=== PATIENT | male | born 1995 | race Caucasian/White ===

== ENCOUNTER 2016-10-27 08:02 | Emergency (ER) | payer OTHER ==
[2016-10-27 08:12] VITALS: BP 148/79
[2016-10-27] MEDS ORDERED: IBUPROFEN 400 MG TABLET PO STA (08:19)
--- NOTE | 2016-10-27 08:22 | ED Physician Documentation ---
History of Present Illness - Stated complaint Stated Complaint: R ANKLE INJ - Chief complaint Chief Complaint: Trauma Ext - Additonal information Additional information: hx from pt 20 AD male inverted R ankle playing football alteral ankle and prox foot pain could bear wt last night but not today no other concerns Review of Systems Musculoskeletal: reports: Pain with weight bearing PD PAST MEDICAL HISTORY - Past Medical History Past Medical History: No Cardiovascular: None Respiratory: None Endocrine/Autoimmune: None GI: None : None HEENT: None Psych: None Musculoskeletal: None Derm: Other - Past Surgical History Past Surgical History: No - Present Medications Home Medications: Ambulatory Orders Medication Instructions Recorded Confirmed No Known Home Medications [No 10/27/16 10/27/16 Known Home Medications] - Allergies Allergies/Adverse Reactions: Allergies Allergy/AdvReac Type Severity Reaction Status Date / Time No Known Drug Allergies Allergy Verified 10/27/16 08:12 - Social History Does the pt smoke?: No Smoking Status: Never smoker Does the pt drink ETOH?: No Does the pt have substance abuse?: No PD ED PE NORMAL - Vitals Vital signs reviewed: Yes - Neuro Neuro: No motor deficit, No sensory deficit, Other (swelling to ankle below lat mall and to lateral proximal foot, mild TTP lat mall and ST inferior and TTP base of 5th, + pedal pulse and cap refill, MS intact, no laxity) Results - Vitals Vitals: Vital Signs - 24 hr 10/27/16 08:09 Temperature 36.3 C L Heart Rate 62 Respiratory 12 Rate Blood Pressure 148/79 H O2 Saturation 99 Oxygen O2 Source Room air - Rads (name of study) foot and ankle Radiology: See rad report (neg) Departure - Departure Disposition: 01 Home, Self Care Clinical Impression: Ankle sprain Qualifiers: Encounter type: initial encounter Involved ligament of ankle: unspecified ligament Laterality: right Qualified Code(s): S93.401A - Sprain of unspecified ligament of right ankle, initial encounter Foot sprain Qualifiers: Encounter type: initial encounter Laterality: right Qualified Code(s): S93.601A - Unspecified sprain of right foot, initial encounter Condition: Good Instructions: ED Sprain Ankle W X Ray, ED Sprain Foot Comments: The xrays do not show any fracture It is possible for a hairline fracture to not be visible on initial xrays so if you still have pain in 2 weeks, see your PMD at [facility] for a recheck and consideration of repeat imaging and perhaps a referral to PT Otherwise recommend motrin for pain, ice and elevation and an GERALD wrap for swelling, use the crutches as needed but can advance activity as tolerated And please follow up with your PMD at [facility] to get your blood pressure rechecked - it was high today Forms: Activity restrictions
[2016-10-27] MEDS ORDERED: IBUPROFEN 400 MG TABLET PO ONE (08:25)
--- NOTE | 2016-10-27 09:29 | XRAY Preliminary Report ---
Exam: XR Foot 3 View RT IMPRESSION: No fracture evident. [facility] SITE ID: [id number]
--- NOTE | 2016-10-27 09:30 | XRAY Preliminary Report ---
Exam: XR Ankle 3 View RT IMPRESSION: No fracture evident. [facility] SITE ID: [id number]
--- NOTE | 2016-10-27 09:32 | XRAY Report ---
EXAM: RIGHT FOOT RADIOGRAPHY EXAM DATE: 10/27/2016 08:42 AM. CLINICAL HISTORY: Lateral foot pain. COMPARISON: None. TECHNIQUE: 3 views. FINDINGS: Bones: Normal. No fractures or bone lesions. Joints: 25 degree hallux valgus. Soft Tissues: Normal. No soft tissue swelling. IMPRESSION: No fracture evident. [facility] Referring Provider Line: [phone] SITE ID: [id number]
--- NOTE | 2016-10-27 09:33 | XRAY Report ---
EXAM: RIGHT ANKLE RADIOGRAPHY EXAM DATE: 10/27/2016 08:42 AM. CLINICAL HISTORY: Lateral ankle foot pain. Lateral pain. Inversion injury playing football. COMPARISON: None. TECHNIQUE: 3 views. FINDINGS: Bones: Normal. No fractures or bone lesions. Joints: Normal. No effusion. No subluxations. The ankle mortise is normally aligned. Soft Tissues: Normal. No soft tissue swelling. IMPRESSION: No fracture evident. [facility] Referring Provider Line: [phone] SITE ID: [id number]
== END 2016-10-27 10:42 | disposition home or self-care (01) ==
LOC: ED 08:02
DX: S93.401A Sprain of unspecified ligament of right ankle, initial encounter (principal); X50.1XXA Overexertion from prolonged static or awkward postures, initial encounter; Y93.61 Activity, american tackle football
CPT/HCPCS: 73610; 73630; 99283; A9270